=== PATIENT | male | born 1955 | race Caucasian/White ===

== ENCOUNTER 2019-03-01 07:05 | Day surgery (SDC) | payer MEDICAID, MEDICARE, OTHER ==
[2019-03-01] MEDS ORDERED: Lidocaine 2% 100 MG/5 ML Syringe IVPUSH ONE (07:06)
[2019-03-01] MEDS ORDERED: Propofol 200 MG/20 ML SDV IV ONE (07:06)
[2019-03-01] MEDS ORDERED: Lactated Ringers 1,000 ML IV SCH (07:15)
--- NOTE | 2019-03-01 09:04 | PCM.OPNOTE ---
- General Post-Op/Procedure Note Date of Surgery/Procedure: 03/01/19 Operative Procedure(s): egd with bx. c scope with bx Findings: gastritis hyperplastic polyp transverse colon polyp internal hemorrhoids Pre Op Diagnosis: epigastric abd pain. bleeding per rectum Post-Op Diagnosis: gastritis. hyperplastic polyp. transverse colon polyp. internal hemorrhoids [place]est[place] [facility] [place] Surgeon: Tavares Springer Anesthesia Provider: Vaughn Sampson Pathology: gastritis hyperplastic polyp transverse colon polyp internal hemorrhoids Complications: None Condition: Good Free Text/Narrative:: see dictation
[2019-03-01 10:10] VITALS: BP 126/84; PULSE 74
--- NOTE | 2019-03-01 10:14 | OR ---
DATE OF OPERATION: 03/01/2019 SURGEON: Tavares Springer MD PROCEDURE PERFORMED: Esophagogastroduodenoscopy with cold forceps biopsy, and colonoscopy with cold forceps biopsy. PREOPERATIVE DIAGNOSES: History of epigastric abdominal pain, nausea, weight loss, and bleeding per rectum. POSTOPERATIVE DIAGNOSES: Gastritis, hyperplastic polyps of the colon, internal hemorrhoids, and transverse colon polyp. INDICATIONS FOR PROCEDURE: This is a 63-year-old white male who was referred with the above-mentioned complaints. He was offered and accepted an upper and lower endoscopy. DESCRIPTION OF OPERATION: After an excellent IV sedation was administered, the bite block was inserted. Flexible endoscope was passed without difficulty down the patient's esophagus into the stomach. Stomach was insufflated. Scope was passed through the pylorus to the second portion of the duodenum and slowly withdrawn. The following findings were noted. Duodenum was unremarkable. Stomach demonstrated some diffuse gastritis. Several biopsies were taken. Esophagus was unremarkable. The patient also had some hyperplastic gastric polyps which were also biopsied and submitted. Our attention was then turned to the colon. Digital rectal exam was performed. No marked abnormality was noted. Flexible colonoscope was inserted and advanced to the cecum. Prep was excellent. Following findings were noted. Ascending colon, unremarkable. Transverse colon, a small polyp, biopsied and submitted in a single container. Descending colon, unremarkable. Sigmoid, unremarkable. Rectum and anus demonstrated some internal hemorrhoids. Photo was taken. The patient tolerated the procedure well. Results by letter. /[id number] /[id number]
== END 2019-03-01 09:59 | disposition home or self-care (01) ==
LOC: FB.SDS 07:05
PROVIDERS: ATTEND Surgery
DX: K62.5 Hemorrhage of anus and rectum (principal); D12.3 Benign neoplasm of transverse colon; K31.7 Polyp of stomach and duodenum; K64.8 Other hemorrhoids; K31.89 Other diseases of stomach and duodenum; K21.9 Gastro-esophageal reflux disease without esophagitis; I10 Essential (primary) hypertension; I25.2 Old myocardial infarction; E78.00 Pure hypercholesterolemia, unspecified; E11.9 Type 2 diabetes mellitus without complications; E03.9 Hypothyroidism, unspecified; E66.9 Obesity, unspecified; F41.9 Anxiety disorder, unspecified; F32.9 Major depressive disorder, single episode, unspecified; G47.33 Obstructive sleep apnea (adult) (pediatric); G43.909 Migraine, unspecified, not intractable, without status migrainosus; Z68.36 Body mass index [BMI] 36.0-36.9, adult; Z79.51 Long term (current) use of inhaled steroids; Z79.82 Long term (current) use of aspirin; Z79.84 Long term (current) use of oral hypoglycemic drugs; Z79.899 Other long term (current) drug therapy
CPT/HCPCS: 00813; 43239; 45380; 82962; J2001; J2704; J7120; 88305; 88342